=== PATIENT | female | born 1990 | race Caucasian/White ===

== ENCOUNTER 2016-11-04 10:43 | Emergency (ER) | payer OTHER ==
[2015-06-06 07:30] VITALS: BMI 25.9
[~2016-11-04 10:43] MED LIST: CLARITIN-D1 TAB.SR . PO; FERROUS SULFAT325 MG PO; IBUPROFEN600 MG PO; PERCOCET 5-3251 TAB PO; PRENATAL COMPLE1 TAB PO
== END 2016-11-04 13:34 | disposition home or self-care (01) ==
LOC: D.ER 10:43
DX: K64.5 Perianal venous thrombosis (principal); F17.200 Nicotine dependence, unspecified, uncomplicated

== ENCOUNTER 2016-11-05 17:52 | Emergency (ER) | payer OTHER ==
[2015-06-06 07:30] VITALS: BMI 25.9
== END 2016-11-05 21:51 | disposition home or self-care (01) ==
LOC: D.ER 17:52
DX: K64.5 Perianal venous thrombosis (principal)

== ENCOUNTER 2016-11-06 16:48 | Emergency (ER) | payer OTHER ==
[2015-06-06 07:30] VITALS: BMI 25.9
== END 2016-11-06 18:45 | disposition home or self-care (01) ==
LOC: D.ER 16:48
DX: K64.4 Residual hemorrhoidal skin tags (principal)

== ENCOUNTER 2016-11-08 10:49 | Day surgery (SDC) | payer OTHER ==
[~2016-11-08] VITALS: Ht 154.9 cm; Wt 51.7 kg
[2016-11-08] MEDS ORDERED: ANUSOL-HC 2.5%30 GM RC (11:51)
[2016-11-08 11:55] VITALS: BP 119/69; Ht 154.9 cm; Wt 51.7 kg
[2016-11-08 12:04] LABS: HCG URINE NEGATIVE (NEGATIVE)
[2016-11-08 12:10] LABS: BASOPHILS 0.3 % (0-2); EOSINOPHILS 2.9 % (0-7); HEMATOCRIT 39.6 % (36.0-48.0); HEMOGLOBIN 13.7 g/dL (12-16); IMMATURE GRANULOCYTES 0.2 % (0-5); LYMPHOCYTES 29.2 % (15-50); MCHC 34.6 g/dL (31.0-37.0); MCV 92.5 fL (80.0-100.0); MEAN PLATELET VOLUME 12.3 fL (7.4-10.4); MONOCYTES 6.7 % (2-11); NEUTROPHILS 60.7 % (40-80); RBC 4.28 10x6/uL (4.00-5.40); RDW 12.6 % (11.5-14.5); WBC 9.6 10x3/uL (4.8-10.8)
[2016-11-08 12:17] LABS: PLATELET COUNT 128 10x3/uL (130-400)
[2016-11-08] MEDS ORDERED: HYDROCODONE-APA1 TAB PO (13:11)
--- NOTE | 2016-11-08 15:22 | NUR ---
IV DC WITH CATHER TIP INTACT
--- NOTE | 2016-11-12 16:31 | OP ---
PATIENT NAME: YEIMY HIGGINS MEDICAL RECORD: [id number] :92 LOCATION:[facility] ADMISSION DATE: SURGEON: IJEOMA FAULKNER MD DATE OF OPERATION: 11/08/2016 PREOPERATIVE DIAGNOSIS: Thrombosed external hemorrhoid. POSTOPERATIVE DIAGNOSES: Thrombosed external hemorrhoid. PROCEDURE: Excision of thrombosed anterior external hemorrhoid. SURGEON: Ijeoma Faulkner MD REPORT OF PROCEDURE: The patient was placed in lithotomy position and the perianal region was prepped and draped in sterile fashion. The patient had a thrombosed hemorrhoid, which had been opened on the most anterior aspect of the patient's anus, sitting at the 12 o'clock position. A 2-0 chromic was placed at the base of this and tied down tightly. The hemorrhoid was then excised using electrocautery with care taken not to injure the patient's sphincter muscles. Once the hemorrhoid was removed, then there previously placed 2-0 chromic was used to close up the incision in a locking fashion. The wound was then irrigated off and a piece of Gelfoam dipped in [place] was placed into the anus. COMPLICATIONS: None. CONDITION: Stable. ANESTHESIA: General endotracheal. BLOOD LOSS: Minimal. 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
== END 2016-11-08 15:33 | disposition home or self-care (01) ==
LOC: D.OPS 10:49
PROVIDERS: Anesthesiology; Surgery
DX: K64.5 Perianal venous thrombosis (principal); F17.200 Nicotine dependence, unspecified, uncomplicated; Z01.812 Encounter for preprocedural laboratory examination

== ENCOUNTER 2017-05-02 21:03 | Emergency (ER) | payer OTHER ==
[2016-11-08 11:55] VITALS: BMI 21.5
[~2017-05-02 21:03] MED LIST changes: +ANUSOL-HC 2.5%30 GM RC; +HYDROCODONE-APA1 TAB PO
== END 2017-05-02 22:50 | disposition home or self-care (01) ==
LOC: D.ER 21:03
DX: K08.89 Other specified disorders of teeth and supporting structures (principal)

== ENCOUNTER 2017-05-16 14:24 | Emergency (ER) | payer OTHER ==
[2016-11-08 11:55] VITALS: BMI 21.5
== END 2017-05-16 16:43 | disposition home or self-care (01) ==
LOC: D.ER 14:24
DX: K08.89 Other specified disorders of teeth and supporting structures (principal)

== ENCOUNTER 2017-06-11 15:24 | Emergency (ER) | payer OTHER ==
[2016-11-08 11:55] VITALS: BMI 21.5
== END 2017-06-11 16:38 | disposition home or self-care (01) ==
LOC: D.ER 15:24
DX: K08.89 Other specified disorders of teeth and supporting structures (principal); K02.9 Dental caries, unspecified

== ENCOUNTER 2017-09-20 20:55 | Emergency (ER) | payer OTHER ==
[~2017-09-20] VITALS: Ht 154.9 cm; Wt 51.8 kg
[2017-09-20 21:01] VITALS: Ht 154.9 cm; Wt 51.8 kg
[2017-09-20] MEDS ORDERED: TYLENOL W/CODEI1 TAB PO (23:23)
[2017-09-20] MEDS ORDERED: AMOXICILLIN500 M1 PO (23:23)
[2017-09-20 23:30] VITALS: BP 142/67
== END 2017-09-20 23:31 | disposition home or self-care (01) ==
LOC: D.ER 20:55
DX: K04.7 Periapical abscess without sinus (principal); K08.89 Other specified disorders of teeth and supporting structures; F17.200 Nicotine dependence, unspecified, uncomplicated

== ENCOUNTER 2018-03-09 18:26 | Emergency (ER) | payer OTHER ==
[~2018-03-09 18:26] MED LIST changes: +AMOXICILLIN500 M1 PO; +TYLENOL W/CODEI1 TAB PO
[2018-03-09 18:34] VITALS: Ht 154.9 cm
[2018-03-09] MEDS ORDERED: TORADOL10 MG PO (21:03)
[2018-03-09] MEDS ORDERED: CLEOCIN HCL300 MG PO (21:03)
[2018-03-09 22:10] VITALS: BP 109/53
== END 2018-03-09 22:11 | disposition home or self-care (01) ==
LOC: D.ER 18:26
DX: K08.89 Other specified disorders of teeth and supporting structures (principal); K02.9 Dental caries, unspecified

== ENCOUNTER 2018-03-23 17:58 | Emergency (ER) | payer OTHER ==
[~2018-03-23] VITALS: Ht 154.9 cm; Wt 52.3 kg
[~2018-03-23 17:58] MED LIST changes: +CLEOCIN HCL300 MG PO; +TORADOL10 MG PO
[2018-03-23 18:04] VITALS: BP 121/57; Ht 154.9 cm; Wt 52.3 kg
== END 2018-03-23 19:34 | disposition left against medical advice (07) ==
LOC: D.ER 17:58
DX: R22.31 Localized swelling, mass and lump, right upper limb (principal)

== ENCOUNTER 2018-10-28 19:36 | Emergency (ER) | payer OTHER ==
[~2018-10-28] VITALS: Ht 154.9 cm; Wt 53.6 kg
[2018-10-28 20:00] VITALS: BP 106/62; Ht 154.9 cm; Wt 53.6 kg
[2018-10-28] MEDS ORDERED: TYLENOL W/CODEI1 TAB PO (20:51)
[2018-10-28] MEDS ORDERED: NAPROSYN500 MG PO (20:51)
== END 2018-10-28 21:05 | disposition home or self-care (01) ==
LOC: D.ER 19:36
DX: S69.91XA Unspecified injury of right wrist, hand and finger(s), initial encounter (principal); W23.0XXA Caught, crushed, jammed, or pinched between moving objects, initial encounter; Y93.89 Activity, other specified; Y92.89 Other specified places as the place of occurrence of the external cause

== ENCOUNTER 2018-12-29 16:18 | Emergency (ER) | payer OTHER ==
[~2018-12-29] VITALS: Ht 154.9 cm; Wt 52.3 kg
[~2018-12-29 16:18] MED LIST changes: +NAPROSYN500 MG PO
[2018-12-29 16:24] VITALS: Ht 154.9 cm; Wt 52.3 kg
[2018-12-29] MEDS ORDERED: NAPROSYN500 MG PO (18:47)
[2018-12-29 19:41] VITALS: BP 127/71
== END 2018-12-29 19:41 | disposition home or self-care (01) ==
LOC: D.ER 16:18
DX: S50.01XA Contusion of right elbow, initial encounter (principal); W22.01XA Walked into wall, initial encounter

== ENCOUNTER 2019-03-14 16:09 | Emergency (ER) | payer OTHER ==
[~2019-03-14] VITALS: Ht 154.9 cm; Wt 52.3 kg
[2019-03-14 16:23] VITALS: Ht 154.9 cm; Wt 52.3 kg
[2019-03-14] MEDS ORDERED: ZPAK PO (17:28)
[2019-03-14] MEDS ORDERED: TESSALON PERLE100 MG PO (17:28)
[2019-03-14 18:53] VITALS: BP 120/55
== END 2019-03-14 18:54 | disposition home or self-care (01) ==
LOC: D.ER 16:09
DX: J40 Bronchitis, not specified as acute or chronic (principal); Z72.0 Tobacco use

== ENCOUNTER 2019-07-08 03:34 | Observation (INO) | payer MEDICAID ==
[2019-07-08] VITALS (9 sets, daily range): BP systolic 88–108; BP diastolic 47–69; Ht 157.5 cm; Wt 52.3 kg
[~2019-07-08] VITALS: Ht 157.5 cm; Wt 52.3 kg
[~2019-07-08 03:34] MED LIST changes: +TESSALON PERLE100 MG PO; +ZPAK PO
[2019-07-08 04:02] LABS: BASOPHILS 0.2 % (0-2); EOSINOPHILS 1.2 % (0-7); HEMATOCRIT 43.2 % (36.0-48.0); HEMOGLOBIN 14.3 g/dL (12-16); IMMATURE GRANULOCYTES 0.3 % (0-5); LYMPHOCYTES 16.1 % (15-50); MCH 32.1 pg (26.0-34.0); MCHC 33.1 g/dL (31.0-37.0); MCV 97.1 fL (80.0-100.0); MEAN PLATELET VOLUME 11.8 fL (7.4-10.4); MONOCYTES 5.6 % (2-11); NEUTROPHILS 76.6 % (40-80); RBC 4.45 10x6/uL (4.00-5.40); RDW 13.4 % (11.5-14.5); WBC 15.1 10x3/uL (4.8-10.8)
[2019-07-08 04:03] LABS: PLATELET COUNT 185 10x3/uL (130-400)
[2019-07-08 04:20] LABS: CALC OSMOLALITY 279 mosm/kg (275-300); CALCIUM 8.8 mg/dL (8.5-10.1); CARBON DIOXIDE 25.1 mmol/L (21.0-32.0); CHLORIDE - SERUM 102 mmol/L (98-107); GLUCOSE 97 mg/dL (74-106); SODIUM 139 mmol/L (136-145); UREA NITROGEN 17 mg/dL (7-18); eGFR NON AFRICAN AMERICAN 70 mL/min (90-120)
[2019-07-08 04:25] LABS: ALBUMIN 4.2 g/dL (3.4-5.0); ALKALINE PHOSPHATASE 79 U/L (30-120); ALT (SGPT) 22 U/L (10-68); AMYLASE - SERUM 52 U/L (25-115); BILIRUBIN NEGATIVE (NEGATIVE); BILIRUBIN - TOTAL 0.84 mg/dL (0.2-1.3); GLUCOSE NEGATIVE (NEGATIVE); HCG URINE NEGATIVE (NEGATIVE); KETONE SMALL mg/dL (NEGATIVE); LIPASE 130 U/L (73-393); NITRITE NEGATIVE (NEGATIVE); PROTEIN - SERUM 7.7 g/dL (6.4-8.2); SPECIFIC GRAVITY 1.025 (1.005-1.020); UROBILINOGEN NORMAL (NORMAL)
[2019-07-08 04:27] LABS: EPITHELIAL CELLS 0-5 /hpf (0-5); RED CELLS - URINE 0-5 /hpf (0-5); WHITE CELLS - URINE 0-5 /hpf (NEGATIVE)
[2019-07-08 04:28] LABS: BACTERIA FEW /hpf (NEGATIVE); TROPONIN-I < 0.017 ng/mL (0.000-0.060)
--- NOTE | 2019-07-08 05:51 | NUR ---
PT GIVEN WATER AND INFORMED TO FILL BLADDER FOR ULTRASOUND.
--- NOTE | 2019-07-08 07:11 | NUR ---
RECEIVED REPORT FROM BHUMIKA KNAPP
--- NOTE | 2019-07-08 10:45 | NUR ---
PT ATE SANDWICH. PT HAS VOIDED, TAKING FLUIDS WELL, EATEN, AND HAS NO N/V. PT BOYFRIEND IS WAITING OUTSIDE FOR HER TO BE DISCHARGED.
--- NOTE | 2019-07-08 11:40 | NUR ---
SPOKE WITH DR FISHER CONCERNING IV FLUIDS- NEW ORDER RECEIVED.
--- NOTE | 2019-07-08 11:55 | NUR ---
LR STARTED AT 125CC/HR INTO IV -RT ACS.
--- NOTE | 2019-07-08 12:02 | NUR ---
WATCHING TV AND LOOKING AT PHONE. DENIES NEEDS AT THIS TIME.
--- NOTE | 2019-07-08 13:21 | NUR ---
dr connell here to see pt- poc discussed. dr connell informed that pt ate at 0930 this am in er. dr connell requests this nurse inform or.
--- NOTE | 2019-07-08 13:35 | NUR ---
notified or of pt eating at 0930 and they state they will inform dr davis.
--- NOTE | 2019-07-08 16:42 | NUR ---
OR CALLS AND STATES TO PRE OP PT. PT AWAKE - UP TO BATHROOM TO VOID.
--- NOTE | 2019-07-08 16:48 | NUR ---
SCD'S PLACED AND PREOP MEDS GIVEN.
--- NOTE | 2019-07-08 17:16 | NUR ---
TO OR VIA BED.
--- NOTE | 2019-07-08 19:05 | NUR ---
PT RETURNS TO ROOM 1219 VS DONE. CARE ASSUMED PER EUGENIA RODRIGUEZ RN.
--- NOTE | 2019-07-08 19:20 | NUR ---
PT ARRIVED TO THIS UNIT FROM SURGERY. SHE HAD A CYST REMOVED VIA LAP SURGERY. PT HAS 3 INCISION WHICH LOOK GOOD, NO DRAINAGE NOTED. SHE HAS AN IV IN THE RIGHT AC INFUSING AT 50ML/HR. PT IS AWAKE AND ORIENTED. SHE CAN BE D/C AFTER RECOVERY.
--- NOTE | 2019-07-08 21:00 | NUR ---
PT CONT TO DO WELL. SHE C/O CRAMPING FEELING. SHE WAS GIVEN TYLENOL 1000 MG. SHE IS DRINKING WELL. NO N/V HAS BEEN UP TO VOID A LARGE AMT.
--- NOTE | 2019-07-08 22:00 | NUR ---
PT IS STILL DOING WELL. IV FLUIDS AT 50ML/HR. PAIN IS BETTER. WATCHING TV AND TALKING ON THE PHONE. VOIDING. NO N/V. PT WAS HUNGRY AND A SANDWICH TRAY WAS GIVEN.
--- NOTE | 2019-07-08 22:15 | OP ---
PATIENT NAME: YEIMY HIGGINS MEDICAL RECORD: [id number] :92 LOCATION:[facility].1219 ADMISSION DATE:07/08/19 SURGEON: BRENDAN GHOSH MD DATE OF OPERATION: 07/08/2019 PREOPERATIVE DIAGNOSES: 1. Pelvic pain. 2. Suspect pelvic hemorrhage. POSTOPERATIVE DIAGNOSES: 1. Pelvic pain. 2. Hemoperitoneum. 3. Active hemorrhagic cyst. PROCEDURE: 1. Diagnostic laparoscopy. 2. Evacuation of hemoperitoneum. 3. Cauterization of hemorrhagic cyst. SURGEON: Brendan Ghosh MD CUPROUS CHLORIDE HELPER: Chris Pulido. ANESTHETIC: General. FINDINGS: Approximately 600 cc hemoperitoneum is encountered. Once the blood is cleared from the right ovary, stigmata is visualized with active bleeding. SPECIMENS REMOVED: Cyst wall. SPECIMEN DISPOSITION: Pathology. ESTIMATED BLOOD LOSS: Minimal. FLUIDS: 450 cc lactated Ringer's. URINE OUTPUT: Quantity sufficient void prior to this procedure. COMPLICATIONS: None. DRAINS: None. INDICATIONS: The patient is a 29-year-old female who presented to the ER last evening with complaints of pelvic pain of sudden onset. The patient was found to have tender abdomen and tender pelvic exam. CT and imaging shows large amount of fluid in the pelvis. After counseling the patient, she is consented for a diagnostic laparoscopy and any indicated procedure. HCG is negative. DESCRIPTION OF PROCEDURE: After informed consent was assured, the patient was taken to the operating room where anesthetic was obtained. The patient was now prepped and draped in the usual sterile fashion after being placed supine on the table. Incision was made at the umbilicus to accommodate a 5-mm trocar, which was inserted without difficulty. Pneumoperitoneum was developed and the patient was placed in Trendelenburg position. A 10-mm port was placed in the midline, 2 fingerbreadths above the symphysis. The 5-mm ports placed in the right lower OPERATIVE REPORT [id number] YEIMY HIGGINS quadrant. Some clot in the left gutter was identified, but the majority of the blood has not clotted at this time. The 10-mm suction structural architect was inserted and clot and blood cleared from the abdomen and pelvis. The right ovary was grasped at the hilum from the midline port and the skin now brought into view. Bright red arterial bleeding was identified at the base and along the capsule of the stigmata. A Thunderbeat coagulation cutter was inserted through the right lower quadrant port and the edges of the ruptured capsule were cauterized. Portions of the cyst wall were extracted and sent to pathology. The deep portions of the hemorrhagic cyst were now cauterized and the pelvis and ovary copiously irrigated. No active bleeding was identified. The pelvis and abdomen again was irrigated and all irrigant removed. The pneumoperitoneum was released and accessory ports were removed under direct visualization. Sponge, lap, and needle counts correct times 2. The patient was awakened and went to the recovery room in stable condition. 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 [address] [place] [address]
--- NOTE | 2019-07-08 23:15 | NUR ---
PT WAS GIVEN D/C INSTRUCTIONS AND WE TALKED ABOUT ALL HER RESTRICTIONS. SHE VERBALIZED UNDERSTAND OF ALL. PAPERWORK SIGN. PT DID NOT WANT TO D/C IN A WHEELCHAIR SO WE WALKED TO ER AND I PUT HER IN THE CAR. SHE WAS WORRIED ABOUT GETTING HER PRESCRIPTIONS FILLED. I GAVE HER DIRECTIONS TO THE [facility] AND [facility] [address].
== END 2019-07-08 23:12 | disposition home or self-care (01) ==
LOC: D.ER 03:34 → D.WS 07:42 → OBSVTIME 07:42 → D.WS 23:12
PROVIDERS: Family Medicine; ADMIT Obstetrics & Gynecology; ATTEND Obstetrics & Gynecology
DX: K66.1 Hemoperitoneum (principal); N83.201 Unspecified ovarian cyst, right side